=== PATIENT | male | born 1980 | race Caucasian/White ===

== ENCOUNTER 2022-10-11 12:03 | Emergency (ER) | payer MEDICAID ==
[~2022-10-11] VITALS: Ht 172.7 cm; Wt 81.6 kg
[2022-10-11 12:34] VITALS: BP 97/62; PULSE 83; RESP 18; TEMP 97.8
[2022-10-11 12:56] VITALS: O2SAT 98
[2022-10-11] MEDS ORDERED: NACL 0.9% 1,000 ML IV ONE (13:05)
[2022-10-11 13:16] LABS: BASOPHILS % (AUTO) 0.1 % (0.0-2.0); EOSINOPHILS # (AUTO) 0.1 K/uL (0-0.4); EOSINOPHILS % (AUTO) 1.5 % (0.0-4.0); HEMATOCRIT 46.9 % (36-52); HEMOGLOBIN 15.9 g/dL (12.0-18.0); LYMPHOCYTES # (AUTO) 2.6 K/uL (2.0-11.5); LYMPHOCYTES % (AUTO) 47.8 % (20.5-51.1); MEAN CORPUSCULAR HEMOGLOBIN 31 pg (27-31); MEAN CORPUSCULAR HGB CONC 34 g/dL (33-37); MEAN CORPUSCULAR VOLUME 92.2 fL (80-94); MONOCYTES # (AUTO) 0.3 K/uL (0.8-1.0); MONOCYTES % (AUTO) 6.1 % (1.7-9.3); NEUTROPHILS # (AUTO) 2.4 K/uL (1.8-7.7); NEUTROPHILS % (AUTO) 44.5 % (42.2-75.2); PLATELET COUNT (AUTO) 285 K/uL (140-450); RED BLOOD CELL COUNT(AUTO) 5.09 MIL/uL (4.20-6.10); RED CELL DISTRIBUTION WIDTH 14.9 % (11.6-13.7); WHITE BLOOD COUNT (AUTO) 5.5 K/uL (4.8-10.8)
[2022-10-11 13:31] LABS: ALBUMIN 3.9 g/dL (3.4-5.0); ANION GAP 17.2 (8-16); CALCIUM 7.9 mg/dL (8.5-10.1); CARBON DIOXIDE 23.4 mmol/L (21-32); CREATININE 1.1 mg/dL (0.6-1.3); POTASSIUM 3.6 mmol/L (3.5-5.1); TOTAL BILIRUBIN 0.2 mg/dL (0.0-1.0); TOTAL PROTEIN, SERUM 7.7 g/dL (6.4-8.2)
[2022-10-11 15:01] VITALS: O2SAT 96
[2022-10-11] MEDS ORDERED: CALCIUM GLUC 1 GM/50 mL NS BAG 50 ML IV ONE (16:30)
[2022-10-11 17:01] VITALS: O2SAT 96
[2022-10-11 18:02] VITALS: BP 100/69; PULSE 76; RESP 16; TEMP 98.1; O2SAT 96
[2022-10-17 06:08] LABS: CK-BB 0 % (0); CK-MB 0 % (0-3); CK-MM 100 % (97-100); Macro Type 1 0 % (Not Observed); Macro Type 2 0 % (Not Observed)
== END 2022-10-11 18:05 | disposition left against medical advice (07) ==
LOC: MED 12:03 → EDBD 12:03 → EDSEX 12:03 → MED 18:05
DX: F10.129 Alcohol abuse with intoxication, unspecified (principal); Y90.9 Presence of alcohol in blood, level not specified
CPT/HCPCS: 36415; 80053; 82552; 85025; 93005; 96360; 99285; J0610; J7030

== ENCOUNTER 2022-10-15 13:12 | Emergency (ER) | payer MEDICAID ==
[~2022-10-15] VITALS: Ht 167.6 cm; Wt 81.6 kg
[2022-10-15 13:17] VITALS: BP 128/76; PULSE 94; RESP 16; TEMP 98; O2SAT 95
[2022-10-15 13:44] VITALS: O2SAT 96
[2022-10-15 14:15] LABS: BASOPHILS % (AUTO) 0.6 % (0.0-2.0); EOSINOPHILS % (AUTO) 0.1 % (0.0-4.0); HEMOGLOBIN 15.1 g/dL (12.0-18.0); LYMPHOCYTES # (AUTO) 1.5 K/uL (2.0-11.5); LYMPHOCYTES % (AUTO) 32.8 % (20.5-51.1); MEAN CORPUSCULAR HEMOGLOBIN 31 pg (27-31); MEAN CORPUSCULAR HGB CONC 34 g/dL (33-37); MONOCYTES # (AUTO) 0.5 K/uL (0.8-1.0); MONOCYTES % (AUTO) 10.1 % (1.7-9.3); NEUTROPHILS # (AUTO) 2.6 K/uL (1.8-7.7); NEUTROPHILS % (AUTO) 56.4 % (42.2-75.2); PLATELET COUNT (AUTO) 255 K/uL (140-450); RED BLOOD CELL COUNT(AUTO) 4.84 MIL/uL (4.20-6.10); RED CELL DISTRIBUTION WIDTH 14.8 % (11.6-13.7); WHITE BLOOD COUNT (AUTO) 4.6 K/uL (4.8-10.8)
[2022-10-15 14:30] LABS: ALANINE AMINOTRANSFERASE 44 U/L (12-78); ALBUMIN 3.8 g/dL (3.4-5.0); ALKALINE PHOSPHATASE 134 U/L (50-136); ANION GAP 15.8 (8-16); ASPARTATE AMINOTRANSFERASE 29 U/L (15-37); CALCIUM 8.1 mg/dL (8.5-10.1); CARBON DIOXIDE 28.2 mmol/L (21-32); CHLORIDE 100 mmol/L (98-107); CREATINE KINASE, TOTAL 568 U/L (39-308); GFR ARICAN-AMERICAN 106 mL/min (>90); GFR NON ARICAN-AMERICAN 88 mL/min (>90); GLUCOSE 93 mg/dL (74-106); SODIUM SERUM 140 mmol/L (136-145); TOTAL BILIRUBIN 0.7 mg/dL (0.0-1.0); TOTAL PROTEIN, SERUM 7.6 g/dL (6.4-8.2); UREA NITROGEN, BLOOD 7 mg/dL (7-18)
[2022-10-15 14:48] VITALS: BP 128/76; PULSE 80; RESP 18
== END 2022-10-15 14:48 | disposition home or self-care (01) ==
LOC: MED 13:12
DX: F10.129 Alcohol abuse with intoxication, unspecified (principal); R07.9 Chest pain, unspecified; R11.10 Vomiting, unspecified; R06.02 Shortness of breath
CPT/HCPCS: 36415; 80053; 82550; 82553; 83735; 84100; 85025; 93005; 99284

== ENCOUNTER 2023-04-06 20:15 | Emergency (ER) | payer SELFPAY ==
[~2023-04-06] VITALS: Ht 170.2 cm; Wt 83.9 kg
[2023-04-06 20:22] VITALS: BP 160/98; PULSE 106; RESP 14; TEMP 97.5; O2SAT 97
[2023-04-06 21:33] LABS: APPEARANCE,URINE CLEAR (CLEAR); BILIRUBIN,URINE NEGATIVE (NEGATIVE); BLOOD, URINE NEGATIVE (NEGATIVE); COLOR,URINE YELLOW (YELLOW); LEUKOCYTE ESTERASE ,URINE NEGATIVE (NEGATIVE); NITRITE, URINE NEGATIVE (NEGATIVE); PH,URINE 6.5 (5.0-9.0); PROTEIN,URINE NEGATIVE (NEGATIVE); UGLUCOSE NEGATIVE (NEGATIVE); UROBILINOGEN,URINE 0.2 EU/dL (0.2 - 1)
[2023-04-06 21:42] VITALS: BP 160/98; PULSE 84; RESP 14; TEMP 97.5; O2SAT 95
[2023-04-06 21:44] LABS: AMPHETAMINE, URINE NEGATIVE ng/ml (NEG <=1000); BARBITURATE, URINE NEGATIVE ng/ml (NEG <=200); BENZODIAZEPINE, URINE NEGATIVE ng/mL (NEG <=200); CANNABINOID, URINE NEGATIVE ng/mL (NEG <=50); COCAINE, URINE NEGATIVE ng/mL (NEG <=300); OPIATE, URINE NEGATIVE ng/mL (NEG <=2000); PHENCYCLIDINE SCREEN,URINE NEGATIVE ng/mL (NEG <=25)
[2023-04-06 21:54] LABS: BASOPHILS % (AUTO) 0.5 % (0.0-2.0); EOSINOPHILS % (AUTO) 0.1 % (0.0-4.0); HEMATOCRIT 45.2 % (36-52); HEMOGLOBIN 15.5 g/dL (12.0-18.0); LYMPHOCYTES # (AUTO) 2.4 K/uL (2.0-11.5); LYMPHOCYTES % (AUTO) 48.9 % (20.5-51.1); MEAN CORPUSCULAR HEMOGLOBIN 31 pg (27-31); MEAN CORPUSCULAR HGB CONC 34 g/dL (33-37); MEAN CORPUSCULAR VOLUME 89.5 fL (80-94); MONOCYTES # (AUTO) 0.3 K/uL (0.8-1.0); MONOCYTES % (AUTO) 5.4 % (1.7-9.3); NEUTROPHILS # (AUTO) 2.2 K/uL (1.8-7.7); NEUTROPHILS % (AUTO) 45.1 % (42.2-75.2); PLATELET COUNT (AUTO) 332 K/uL (140-450); RED BLOOD CELL COUNT(AUTO) 5.05 MIL/uL (4.20-6.10); RED CELL DISTRIBUTION WIDTH 17.1 % (11.6-13.7); WHITE BLOOD COUNT (AUTO) 4.8 K/uL (4.8-10.8)
[2023-04-06] MEDS ORDERED: ONDANSETRON 4 MG/2 ML VIAL ONE (21:56)
[2023-04-06 22:02] LABS: ANION GAP 15.1 (8-16); CALCIUM 8.3 mg/dL (8.5-10.1); CARBON DIOXIDE 29.7 mmol/L (21-32); CREATININE 0.8 mg/dL (0.6-1.3); POTASSIUM 3.8 mmol/L (3.5-5.1)
[2023-04-06] MEDS: ONDANSETRON 4 MG/2 ML VIAL IVP ONE (22:07)
[2023-04-06] MEDS: NACL 0.9% 1,000 ML IV ONE (22:07)
[2023-04-06 22:09] LABS: ALANINE AMINOTRANSFERASE 37 U/L (12-78); ALBUMIN 3.6 g/dL (3.4-5.0); ALKALINE PHOSPHATASE 139 U/L (50-136); ASPARTATE AMINOTRANSFERASE 34 U/L (15-37); BILIRUBIN,DIRECT 0.1 mg/dL (0.0-0.3); SALICYLATE < 2.8 mg/dL (2.8-20.0); TOTAL BILIRUBIN 0.3 mg/dL (0.0-1.0); TOTAL PROTEIN, SERUM 8.6 g/dL (6.4-8.2)
[2023-04-06 22:10] LABS: ACETAMINOPHEN < 0.5 ug/ml (10-30); ALCOHOL, BLOOD 442 mg/dL (<10)
[2023-04-07] MEDS ORDERED: ONDA-188 SL (13:24)
== END 2023-04-06 22:44 | disposition left against medical advice (07) ==
LOC: MED 20:15
DX: F10.129 Alcohol abuse with intoxication, unspecified (principal); Y90.8 Blood alcohol level of 240 mg/100 ml or more
CPT/HCPCS: 36415; 80048; 80076; 80305; 81003; 85025; 93005; 96361; 96374; 99284; G0480; G0482; J2405; J7030

== ENCOUNTER 2023-04-07 08:27 | Emergency (ER) | payer SELFPAY ==
[~2023-04-07] VITALS: Ht 172.7 cm; Wt 79.4 kg
[2023-04-07 08:31] VITALS: BP 134/86; PULSE 96; RESP 18; TEMP 98.1; O2SAT 96
[2023-04-07] MEDS: NACL 0.9% 1,000 ML IV ONE ×2 (09:17→11:12)
[2023-04-07 09:19] VITALS: O2SAT 94
[2023-04-07 09:30] LABS: BASOPHILS % (AUTO) 0.5 % (0.0-2.0); EOSINOPHILS % (AUTO) 0.2 % (0.0-4.0); HEMATOCRIT 46.6 % (36-52); LYMPHOCYTES # (AUTO) 1.7 K/uL (2.0-11.5); LYMPHOCYTES % (AUTO) 18.1 % (20.5-51.1); MEAN CORPUSCULAR HEMOGLOBIN 31 pg (27-31); MEAN CORPUSCULAR HGB CONC 34 g/dL (33-37); MEAN CORPUSCULAR VOLUME 88.9 fL (80-94); MONOCYTES # (AUTO) 0.3 K/uL (0.8-1.0); MONOCYTES % (AUTO) 3.7 % (1.7-9.3); NEUTROPHILS # (AUTO) 7.2 K/uL (1.8-7.7); NEUTROPHILS % (AUTO) 77.5 % (42.2-75.2); PLATELET COUNT (AUTO) 318 K/uL (140-450); RED BLOOD CELL COUNT(AUTO) 5.24 MIL/uL (4.20-6.10); RED CELL DISTRIBUTION WIDTH 17.1 % (11.6-13.7); WHITE BLOOD COUNT (AUTO) 9.2 K/uL (4.8-10.8)
[2023-04-07] MEDS: ONDANSETRON 4 MG/2 ML VIAL IVP ONE ×2 (09:31→12:05)
[2023-04-07 10:41] LABS: ANION GAP 25.2 (8-16); CARBON DIOXIDE 21.5 mmol/L (21-32); CREATININE 0.6 mg/dL (0.6-1.3); POTASSIUM 3.7 mmol/L (3.5-5.1)
[2023-04-07 11:20] VITALS: BP 120/75; PULSE 90; RESP 17; TEMP 98.3; O2SAT 96
[2023-04-07 11:20] LABS: ALANINE AMINOTRANSFERASE 23 U/L (12-78); ALBUMIN 3.4 g/dL (3.4-5.0); ALKALINE PHOSPHATASE 96 U/L (50-136); ASPARTATE AMINOTRANSFERASE 19 U/L (15-37); BILIRUBIN,DIRECT 0.1 mg/dL (0.0-0.3); TOTAL PROTEIN, SERUM 7.7 g/dL (6.4-8.2)
[2023-04-07 11:22] LABS: SALICYLATE < 2.8 mg/dL (2.8-20.0)
[2023-04-07 11:24] LABS: ACETAMINOPHEN < 0.5 ug/ml (10-30)
[2023-04-07 12:03] LABS: ALCOHOL, BLOOD 416 mg/dL (<10)
[2023-04-07 12:17] LABS: TOTAL BILIRUBIN 0.5 mg/dL (0.0-1.0)
[2023-04-07] MEDS ORDERED: ONDA-188 SL (13:24)
== END 2023-04-07 13:27 | disposition home or self-care (01) ==
LOC: MED 08:27
DX: F10.129 Alcohol abuse with intoxication, unspecified (principal); Z79.899 Other long term (current) drug therapy; Y90.9 Presence of alcohol in blood, level not specified
CPT/HCPCS: 36415; 70450; 80048; 80076; 85025; 90471; 90715; 93005; 96361; 96374; 96376; 99285; G0480; G0482; J2405; J7030

== ENCOUNTER 2023-04-11 07:40 | Inpatient (IN) | payer SELFPAY ==
[~2023-04-11] VITALS: Ht 172.7 cm; Wt 83.9 kg
[~2023-04-11 07:40] MED LIST: ONDA-188 SL
[2023-04-11 07:45] VITALS: BP 108/66; PULSE 81; RESP 20; TEMP 98.1; O2SAT 97
[2023-04-11 08:31] LABS: BASOPHILS % (AUTO) 0.3 % (0.0-2.0); EOSINOPHILS % (AUTO) 0.2 % (0.0-4.0); HEMATOCRIT 37.6 % (36-52); LYMPHOCYTES # (AUTO) 0.9 K/uL (2.0-11.5); LYMPHOCYTES % (AUTO) 16.5 % (20.5-51.1); MEAN CORPUSCULAR HEMOGLOBIN 31 pg (27-31); MEAN CORPUSCULAR HGB CONC 35 g/dL (33-37); MEAN CORPUSCULAR VOLUME 89.2 fL (80-94); MONOCYTES # (AUTO) 0.3 K/uL (0.8-1.0); MONOCYTES % (AUTO) 5.2 % (1.7-9.3); NEUTROPHILS # (AUTO) 4.2 K/uL (1.8-7.7); NEUTROPHILS % (AUTO) 77.8 % (42.2-75.2); PLATELET COUNT (AUTO) 164 K/uL (140-450); RED BLOOD CELL COUNT(AUTO) 4.21 MIL/uL (4.20-6.10); RED CELL DISTRIBUTION WIDTH 16.7 % (11.6-13.7); WHITE BLOOD COUNT (AUTO) 5.4 K/uL (4.8-10.8)
[2023-04-11 08:43] LABS: ANION GAP 19.1 (8-16); CALCIUM 7.3 mg/dL (8.5-10.1); CARBON DIOXIDE 24.5 mmol/L (21-32); CREATININE 0.7 mg/dL (0.6-1.3); POTASSIUM 3.6 mmol/L (3.5-5.1)
[2023-04-11] MEDS: NACL 0.9% 1,000 ML IV ONE ×2 (08:47→10:40)
[2023-04-11] MEDS: ONDANSETRON 4 MG/2 ML VIAL IVP ONE (08:49)
[2023-04-11] MEDS: THIAMINE 100 MG TAB PO ONE (08:51)
[2023-04-11 09:03] LABS: ACETAMINOPHEN 0.5 ug/ml (10-30); ALANINE AMINOTRANSFERASE 45 U/L (12-78); ALBUMIN 2.6 g/dL (3.4-5.0); ALCOHOL, BLOOD 380 mg/dL (<10); ALKALINE PHOSPHATASE 132 U/L (50-136); ASPARTATE AMINOTRANSFERASE 50 U/L (15-37); BILIRUBIN,DIRECT 0.1 mg/dL (0.0-0.3); CREATINE KINASE, TOTAL 1683 U/L (39-308); TOTAL BILIRUBIN 0.3 mg/dL (0.0-1.0); TOTAL PROTEIN, SERUM 6.4 g/dL (6.4-8.2)
[2023-04-11 09:05] LABS: SALICYLATE < 2.8 mg/dL (2.8-20.0)
[2023-04-11] MEDS: HALOPERIDOL IM 5 MG/ML VIAL IM ONE (10:20)
[2023-04-11] MEDS ORDERED: ONDANSETRON 4 MG/2 ML VIAL IVP PRN (13:15)
[2023-04-11] MEDS ORDERED: LORazepam 1 MG TAB PO PRN ×2 (13:15)
[2023-04-11] MEDS: NACL 0.9% 1,000 ML IV SCH (14:15)
[2023-04-11] MEDS ORDERED: TRAZ-343 PO (15:17)
[2023-04-11] MEDS ORDERED: HYDR25CA1 PO (15:17)
[2023-04-11] MEDS ORDERED: [UNRECOGNIZED DRUG - CODE] MC (15:17)
[2023-04-11 15:48] VITALS: PULSE 110; RESP 18; O2SAT 96
[2023-04-11 16:00] VITALS: BP 95/50; PULSE 105; RESP 20; TEMP 97; O2SAT 98
[2023-04-11] MEDS ORDERED: chlordiazePOXIDE 25 MG CAP PO SCH (17:00)
[2023-04-12] MEDS ORDERED: THIAMINE 100 MG TAB PO SCH (09:00)
[2023-04-12] MEDS ORDERED: FOLIC ACID 1 MG TAB PO SCH (09:00)
[2023-04-12] MEDS ORDERED: MULTIVITAMIN 1 TAB PO SCH (09:00)
== END 2023-04-11 16:45 | disposition left against medical advice (07) | DRG 92 ==
LOC: MED 07:40 → MTU 13:15 → MMU 14:43
PROVIDERS: ADMIT Student in an Organized Health Care Education/Training Program; ATTEND Student in an Organized Health Care Education/Training Program
DX: G92.8 Other toxic encephalopathy (principal); E44.1 Mild protein-calorie malnutrition; Z68.28 Body mass index [BMI] 28.0-28.9, adult; M62.82 Rhabdomyolysis; F10.129 Alcohol abuse with intoxication, unspecified
CPT/HCPCS: 36415; 70450; 71045; 72125; 80048; 80076; 82550; 82553; 84484; 85025; 87081; 96361; 96374; 99285; G0480; G0482; J2405; J7030

== ENCOUNTER 2023-04-15 17:17 | Emergency (ER) | payer SELFPAY ==
[~2023-04-15] VITALS: Ht 167.6 cm; Wt 68.0 kg
[~2023-04-15 17:17] MED LIST changes: +HYDR25CA1 PO; -ONDA-188 SL; +TRAZ-343 PO; +[UNRECOGNIZED DRUG - CODE] MC
[2023-04-15 17:18] VITALS: BP 148/90; PULSE 98; RESP 18; TEMP 97.7; O2SAT 98
[2023-04-15] MEDS: ALUMINUM HYD/MAG/SIMETHICONE 30 ML UDC PO ONE (17:43)
[2023-04-15] MEDS: FAMOTIDINE 20 MG TAB PO ONE (17:44)
[2023-04-15 18:10] LABS: BASOPHILS % (AUTO) 0.3 % (0.0-2.0); EOSINOPHILS % (AUTO) 0.1 % (0.0-4.0); HEMATOCRIT 39.4 % (36-52); HEMOGLOBIN 13.7 g/dL (12.0-18.0); LYMPHOCYTES # (AUTO) 1.5 K/uL (2.0-11.5); LYMPHOCYTES % (AUTO) 13.6 % (20.5-51.1); MEAN CORPUSCULAR HEMOGLOBIN 31 pg (27-31); MEAN CORPUSCULAR HGB CONC 35 g/dL (33-37); MEAN CORPUSCULAR VOLUME 89.3 fL (80-94); MONOCYTES # (AUTO) 0.9 K/uL (0.8-1.0); MONOCYTES % (AUTO) 7.6 % (1.7-9.3); NEUTROPHILS # (AUTO) 8.8 K/uL (1.8-7.7); NEUTROPHILS % (AUTO) 78.4 % (42.2-75.2); PLATELET COUNT (AUTO) 226 K/uL (140-450); RED BLOOD CELL COUNT(AUTO) 4.41 MIL/uL (4.20-6.10); RED CELL DISTRIBUTION WIDTH 16.7 % (11.6-13.7); WHITE BLOOD COUNT (AUTO) 11.2 K/uL (4.8-10.8)
[2023-04-15 18:21] LABS: ANION GAP 17.4 (8-16); CALCIUM 7.3 mg/dL (8.5-10.1); CARBON DIOXIDE 27.6 mmol/L (21-32); CREATININE 0.7 mg/dL (0.6-1.3)
[2023-04-15 18:24] LABS: ALANINE AMINOTRANSFERASE 36 U/L (12-78); ALBUMIN 2.6 g/dL (3.4-5.0); ALKALINE PHOSPHATASE 124 U/L (50-136); ASPARTATE AMINOTRANSFERASE 26 U/L (15-37); BILIRUBIN,DIRECT 0.1 mg/dL (0.0-0.3); CREATINE KINASE, TOTAL 335 U/L (39-308); LIPASE 129 U/L (16-77); TOTAL BILIRUBIN 0.3 mg/dL (0.0-1.0); TOTAL PROTEIN, SERUM 6.8 g/dL (6.4-8.2)
[2023-04-15 19:00] VITALS: BP 107/69; PULSE 94; RESP 15; TEMP 97.8; O2SAT 95
== END 2023-04-15 19:00 | disposition home or self-care (01) ==
LOC: MED 17:17
DX: F10.129 Alcohol abuse with intoxication, unspecified (principal); Z79.899 Other long term (current) drug therapy; Y90.9 Presence of alcohol in blood, level not specified
CPT/HCPCS: 36415; 80048; 80076; 82550; 82553; 83690; 85025; 99283

== ENCOUNTER 2023-06-15 00:50 | Emergency (ER) | payer OTHER ==
[~2023-06-15] VITALS: Ht 170.2 cm; Wt 83.9 kg
[2023-06-15 01:01] VITALS: BP 143/101; PULSE 93; RESP 18; TEMP 98; O2SAT 98
== END 2023-06-15 01:26 ==
LOC: MED 00:50
DX: Z02.89 Encounter for other administrative examinations (principal); Z79.899 Other long term (current) drug therapy
CPT/HCPCS: 99283